=== PATIENT | female | born 2000 | race Caucasian/White ===

== ENCOUNTER 2023-05-26 09:08 | Emergency (ER) | payer OTHER, MEDICAID, SELFPAY ==
--- NOTE | ~2023-05-26 | XR_ITS ---
EXAMINATION: XR KNEE, RIGHT CLINICAL INFORMATION: Right knee pain COMPARISON: X-rays of the right knee April 2017 TECHNIQUE: Four views of the right knee. FINDINGS: No fracture or joint effusion. Alignment is anatomic. Joint spaces are maintained. No abnormal soft tissue calcification. XR/XR knee RT 4V IMPRESSION: Normal right knee.
[2023-05-26 09:38] VITALS: BP 131/85; PULSE 130; RESP 20; TEMP 36.3; O2SAT 97; BMI 23.0
--- NOTE | 2023-05-26 09:53 | ECG_ITS ---
Test Reason : tachy Blood Pressure : / mmHG Vent. Rate : 133 BPM Atrial Rate : 133 BPM P-R Int : 128 ms QRS Dur : 080 ms QT Int : 298 ms P-R-T Axes : 046 052 043 degrees QTc Int : 443 ms Sinus tachycardia Otherwise normal ECG No previous ECGs available Referred By: Generic ED Physician Electronically Signed By:Rasheed Vela
--- NOTE | 2023-05-26 12:24 | ED_ITS ---
<Statement entered by Juan Luis Buckner MD - 05/26/23 17:46> I saw this patient with the physician speech therapy assistant. Patient is here for evaluation of issues related to her right leg. The patient is a type 1 diabetic. She was hospitalized in [place] last month and was found to have collections, possibly abscesses in the right leg. It is an unusual case. She has a surgical scar with sutures intact in the lower thigh and also in the lower leg. Clinically the patient seems to have a very stiff-legged but I do not think she shows signs of an obvious acute septic process. I think the patient primarily needs follow- up. Apparently insurance issues have been very problematic as she has moved from [place] to [place]. 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 Reports she was suspposed to follow up with infectious disease and ortho but she had a change in her insurance and cant be seen in [place] anymore looking for a referal to ortho and guidance. Related Data Allergies Allergy/AdvReac Type Severity Reaction Status Date / Time amoxicillin [From Augmentin] Allergy Rash Verified 05/26/23 09:37 ceftriaxone [From Rocephin] Allergy Rash Verified 05/26/23 09:37 chamomile flower Allergy Hives Verified 05/26/23 09:37 clavulanic acid Allergy Rash Verified 05/26/23 09:37 [From Augmentin] pineapple Allergy Anaphylaxis Verified 05/26/23 09:37 Review of Systems 2 Review of Systems: Constitutional : No Weight loss, No Fever, No Chills, No Fatigue, No Malaise ENT/Mouth : No sore throat, No Rhinorrhea Eyes: No Eye Pain, No Swelling, No Redness Cardiovascular : No Chest Pain, No SOB, No Dyspnea on Exertion, No Orthopnea, No Edema, No Palpitations Respiratory : No Cough, No Sputum, No Wheezing Gastrointestinal : No Nausea, No Vomiting, No Diarrhea, No Constipation, No abdominal Pain, No Hematochezia, No Melena Genitourinary : No Dysuria, No Urinary Frequency, No Hematuria, Musculoskeletal : No joint pain, No Myalgias, No Joint Swelling Skin : No Skin Lesions, No rash Neuro : No Weakness, No Numbness, No Dizziness, No Headache Psych : No Anxiety/Panic, No Depression Heme/Lymph: No Bruising, No Bleeding,No Lymphadenopathy Endocrine : No Polyuria, No Polydipsia All other systems reviewed and are negative Yes all other systems are reviewed and are negative [facility] Past Medical History Attestation statement: The following information was validated with the patient. Source: old records reviewed and nursing notes reviewed Onset Date is defined in the Problem List Problems that require an onset date and time if occurred within 24 hrs of arrival to the ED Aortic Dissection and Rupture; Neurologic impairment; Cardiopulmonary Arrest; Endotracheal Intubation; Insertion or Replacement of Mechanical Circulatory Assist Device Social History Social History Smoked in Last 30 Days: No Use of substances other than those prescribed or required for medical reasons: No Advance Directives: No Advance Directives Information Provided: Yes Patient : No Physical Exam ED Vital Signs: Vital Signs - 24 hr 05/26/23 09:38 05/26/23 12:35 Temperature 97.4 F Pulse Rate 130 H 121 H Respiratory Rate 20 Blood Pressure 131/85 111/64 Pulse Oximetry 97 98 Oxygen Delivery Method Room Air Room Air BMI result Body Mass Index 23.0 vss Appearance: Alert.? Oriented X3.? No acute distress.? Head: Normocephalic, atraumatic, no step-offs or deformities Eyes: Pupils equal, round and reactive to light.? Neck: Normal inspection.? Neck supple.? CVS: Normal heart rate and rhythm.? Pulses normal.? Respiratory: No respiratory distress.? Breath sounds normal.? Abdomen: Soft and nontender.? Skin: Skin warm and dry.? Normal skin color.? Normal skin turgor.? Extremities: No lower extremity edema.? No calf ttp. 5/5 strength to bilateral upper and lower extremities 2+ DP,at,popliteal pulses equal and b/l. + R knee in a flexed position w/ difficulty extending R knee normal sensation distally, no foot drop. Ambulating w/ limp favoring L knee. Full rom rom to L knee. Two surgical incisions to RLE ( one behind r. knee w/ 7 sutures and one below the right knee anterior and medially w/ 7 sutures) - sutures removed after Neuro: Oriented X 3.? No motor deficit.? No sensory deficit. CN 2-12 intact Course Reevaluation(s) Reevaluation #1: CBC unremarkable. Chemistry unremarkable. Normal lactic acid. Normal glucose. Patient was seen by the orthopedic team this is likely knee in flexion due to healing, no acute findings, nothing to be done emergently about it. Patient to follow-up in the office. Patient does not have a PCP. Will give her list of PCPs in the area. Educated patient on diagnosis and treatment plan, answered all question, patient verbalizes understanding. At this time patient will be discharged home, advised to return with new or worsening symptoms. Educated on worrisome signs and symptoms and when to return. At this time I feel comfortable discharge home. Time: 14:56 Medical Decision Making Medical Decision Making [facility] Narrative: 23 yo presents requesting suture removal & w/ knee pain and swelling s/p I&D at [facility] [place] a few weeks ago No lower extremity edema.? No calf ttp. 5/5 strength to bilateral upper and lower extremities 2+ DP,at,popliteal pulses equal and b/l. + R knee in a flexed position w/ difficulty extending R knee normal sensation distally, no foot drop. Ambulating w/ limp favoring L knee. Full rom rom to L knee. This is likely poor ROM due to post op state. Unlikely DVT, arterial occlusion, NV compromise or threat to limb. No signs of abscess or infection. Plan- xray, labs Will reach out to orhto Differential Diagnosis Differential Diagnoses: The differential diagnosis associated with the presentation includes This is likely poor ROM due to post op state. Unlikely DVT, arterial occlusion, NV compromise or threat to limb. No signs of abscess or infection. Admission/Observation Consideration of admission/observation: Escalation of care including admission/observation considered Possible Consult Healthcare Provider Management of the patient was discussed with: Research Physicist (Ortho ) Lab Data [facility] Lab Attestation statement: I reviewed the patient's lab results. 05/26/23 13:11 05/26/23 13:11 Labs: Lab Results 01/02/24 01/02/24 01/02/24 Range/Units 12:46 13:11 14:29 WBC 7.2 (4.8-10.8) X10*3/uL RBC 4.80 (4.20-5.50) X10*6/uL Hgb 13.8 (12.0-16.0) g/dl Hct 40.6 (37.0-47.0) % MCV 84.6 (80.0-98.0) fL MCH 28.8 (27.0-33.0) pg MCHC 34.0 (31.0-35.0) g/dl RDW 13.0 (11.0-16.0) % Plt Count 388 (160-400) X10*3/uL MPV 9.6 (9.4-12.3) fL Immature Gran % (Auto) 0.1 (0.0-0.4) % Neut % (Auto) 33.9 L (45-73) % Lymph % (Auto) 57.9 H (20-40) % Alcorn % (Auto) 7.1 (2-11) % Eos % (Auto) 0.6 (0-4) % Baso % (Auto) 0.4 (0-2) % Lymph # (Auto) 4.2 (1.2-4.9) X10*3/uL Alcorn # (Auto) 0.5 (0.1-1.2) X10*3/uL Eos # (Auto) 0.0 (0.0-0.4) X10*3/uL Baso # (Auto) 0.0 (0.0-0.2) X10*3/uL Abs Immat Gran (auto) 0.01 (0.00-0.03) X10*3/uL Absolute Neuts (auto) 2.4 (2.0-8.3) x10*3/uL Absolute Nucleated RBC 0.000 (0.0-0.012) X10*3/uL Nucleated RBC % (auto) 0.0 (0.0-0.2) /100WBC Sodium 141 (135-145) mmol/L Potassium 3.8 (3.3-5.1) mmol/L Chloride 103 (96-108) mmol/L Carbon Dioxide 25 (22-29) mmol/L Anion Gap 17 (12-20) BUN 11 (9-16) mg/dL Creatinine 0.65 (0.5-1.4) mg/dL Estim Creat Clear Calc 138.0 Estimated GFR > 60 POC Glucose 91 (60-115) mg/dL Random Glucose 101 (60-115) mg/dL Lactic Acid 1.6 (0.5-2.0) mmol/L Calcium 9.8 (8.4-10.2) mg/dL Total Bilirubin 0.4 (0.0-1.0) mg/dL AST 12 (5-31) U/L ALT 18 (0-31) U/L Alkaline Phosphatase 69 (39-117) U/L Total Protein 7.9 (6.5-8.0) g/dL Albumin 4.3 (3.5-5.0) g/dL Independent Interpretation I performed an independent interpretation of an: Plain X-Ray Radiology Impression Discussion of test interpretation with radiology: I have reviewed the radiologist's reading. External Record Review External record reviewed: Outpatient record, Prior outpatient radiology and Outside ED record Chronic Conditions Patient?s care impacted by: Diabetes Critical Care Time Critical Care Time Critical Care Time: No Discharge Plan Discharge Clinical Impression: Knee pain, right Patient Disposition: Home, Self-Care Instructions: Knee Pain (ED) Additional Instructions: Take your medications as prescribed. If you were prescribed antibiotics today, it is important that you take your medication to their entirety, do not skip any doses, do not finish them early. Follow-up with your primary care provider this week. Return to the emergency department with new or worsening symptoms. Such as fevers, chills, chest pain, shortness of breath, nausea, vomiting, dizziness, headache, vision changes, lethargy In case of emergency call 911 Follow-up with the orthopedic team Return if any signs of infection such as redness, discharge from the site, inability to move knee. XR/XR knee RT 4V IMPRESSION: Normal right knee. Referrals: [facility] [place] [facility] [Provider Group] - 1 day [facility] [place] [facility] [Provider Group] - 1 day [facility] [place] [facility] [Provider Group] - 1 week Stand Alone Forms: Work/School Release
[2023-05-26 12:35] VITALS: BP 111/64; PULSE 121; O2SAT 98
--- NOTE | 2023-05-26 12:35 | PC.NURSE ---
pt speaking w/ orthopedic surgeons at this time.
[2023-05-26 13:07] LABS: Lactic Acid 1.6 mmol/L (0.5-2.0)
[2023-05-26 13:16] LABS: MANUAL DIFF FLAG NO
[2023-05-26 13:19] LABS: Basophils Percent Auto 0.4 % (0-2); Eosinophils Percent Auto 0.6 % (0-4); Hematocrit 40.6 % (37.0-47.0); Hemoglobin 13.8 g/dl (12.0-16.0); Imm Gran Abs Auto 0.01 X10*3/uL (0.00-0.03); Imm Gran Pct Auto 0.1 % (0.0-0.4); Lymphocytes Absolute Auto 4.2 X10*3/uL (1.2-4.9); Lymphocytes Percent Auto 57.9 % (20-40); Mean Corpuscular Hemoglobin 28.8 pg (27.0-33.0); Mean Corpuscular Volume 84.6 fL (80.0-98.0); Mean Platelet Volume 9.6 fL (9.4-12.3); Monocytes Absolute Auto 0.5 X10*3/uL (0.1-1.2); Monocytes Percent Auto 7.1 % (2-11); Neutrophils Absolute Auto 2.4 x10*3/uL (2.0-8.3); Neutrophils Percent Auto 33.9 % (45-73); Platelet Count 388 X10*3/uL (160-400); White Blood Count 7.2 X10*3/uL (4.8-10.8)
--- NOTE | 2023-05-26 14:18 | PC.NURSE ---
sutures being removed by ED providers at this time.
[2023-05-26 14:33] LABS: Glucose, Whole Blood 91 mg/dL (60-115)
[2023-05-26 14:39] LABS: Alanine Aminotransferase 18 U/L (0-31); Albumin Level 4.3 g/dL (3.5-5.0); Alkaline Phosphatase 69 U/L (39-117); Anion Gap 17 (12-20); Aspartate Amino Transferase 12 U/L (5-31); Bilirubin Total 0.4 mg/dL (0.0-1.0); Blood Urea Nitrogen 11 mg/dL (9-16); Calcium 9.8 mg/dL (8.4-10.2); Carbon Dioxide 25 mmol/L (22-29); Chloride 103 mmol/L (96-108); Estimated Glomerular Filt Rate > 60; Glucose Random 101 mg/dL (60-115); Potassium 3.8 mmol/L (3.3-5.1); Sodium 141 mmol/L (135-145); Total Protein 7.9 g/dL (6.5-8.0)
== END 2023-05-26 14:56 | disposition home or self-care (01) ==
PROVIDERS: Physician Assistant; Emergency Provider Emergency Medicine
DX: G89.18 Other acute postprocedural pain (principal); M25.561 Pain in right knee; Z48.02 Encounter for removal of sutures; E10.9 Type 1 diabetes mellitus without complications
CPT/HCPCS: 36415; 73564; 80053; 82947; 83605; 85025; 87040; 93005; 99283; 99284

== ENCOUNTER → 2023-05-26 09:53 | Outpatient (BNV) | payer OTHER, MEDICAID, SELFPAY | PROVIDERS: Emergency Provider Emergency Medicine; Visit Provider Internal Medicine Cardiovascular Disease | DX: R00.0 Tachycardia, unspecified (principal) | CPT/HCPCS: 93010 ==

== ENCOUNTER 2023-05-29 09:51 | Outpatient (AMB) | payer OTHER, MEDICAID, SELFPAY ==
[2023-05-29 09:54] VITALS: BMI 23.0
--- NOTE | 2023-05-29 09:54 | MHC.OFFVIS ---
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 Patient reports her knee feels a little bit better, however her incision site near her erickson. 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 The patient presented to the ED on 05/26/2023. 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 presenting w/ R knee pain swelling, inability to extend R knee and intermittent numbness, tingling and weird discoloration X a few days. Reports she was supposed to follow up with infectious disease and ortho but she had a change in her insurance and cant be [place] anymore looking for a referral to Orthopedics and guidance. The ED note states she was hospitalized in 04/2023 in [place] where it was found to have collections, possibly abscesses in the right leg. A surgical scar and sutures were noted on the left thigh and lower left leg. Review of Systems Const All systems reviewed & are unremarkable except as noted in HPI and below Physical Exam Vital Signs: BMI result Body Mass Index 23.0 Const General: cooperative and no acute distress Orientation/consciousness: patient oriented x3 Resp Effort & Inspection: normal respiratory effort and able to speak in complete sentences Cardio Peripheral pulses: Peripheral pulses 2+ throughout Skin General skin exam: no rashes or lesions noted Neuro General: patient oriented x3 Extrem Other: Right lower extremity distal incision site over the medial proximal tibia as well as the posterior lateral distal femur is c/d/i. No surrounding erythema, edema, or drainage. ROM is 45-90. NVI. Assessment & Plan Assessment & Plan (1) Stiffness of right knee: Code(s): M25.661 - Stiffness of right knee, not elsewhere classified (2) Abscess: Code(s): L02.91 - Cutaneous abscess, unspecified Plan Ms. Trejo is a 23-year-old female who presents in the office today, as a new patient, for an evaluation of right knee pain. The patient presented to the ED on 05/26/2023. 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 presenting w/ R knee pain swelling, inability to extend R knee and intermittent numbness, tingling and weird discoloration X a few days. Reports she was supposed to follow up with infectious disease and ortho but she had a change in her insurance and [place] be seen [place] anymore looking for a referral to Orthopedics and guidance. The ED note states she was hospitalized in 04/2023 in [place] where it was found to have collections, possibly abscesses in the right leg. A surgical scar and sutures were noted on the left thigh and lower left leg. The patient will be referred to physical therapy to work on ROM. Follow up will be in 6 weeks, or sooner if needed. X-rays of the right knee, obtained on 05/26/2023, revealed no evidence of acute fracture or dislocation. Orders: Orders PT Evaluation and Treatment Today M25.661 - Stiffness of right knee, not elsewhere classified Patient Instructions: Scribed for Rhonda Hurst PA-C by Kary Plascencia biomedical engineering aide, on 05/29/2023 at 10:02 am, EST. Coding Level of Care Code New Pt Level 4 (05456) Diagnoses Stiffness of right knee M25.661 Abscess L02.91
== END 2023-05-29 10:15 | disposition home or self-care (01) ==
PROVIDERS: Visit Provider Physician Assistant
DX: M25.661 Stiffness of right knee, not elsewhere classified (principal); L02.415 Cutaneous abscess of right lower limb
CPT/HCPCS: 99204

== ENCOUNTER → 2023-05-29 09:51 | Outpatient (BNVA) | payer OTHER, MEDICAID, SELFPAY | PROVIDERS: Visit Provider Physician Assistant | DX: M25.661 Stiffness of right knee, not elsewhere classified (principal); L02.91 Cutaneous abscess, unspecified | CPT/HCPCS: 99202 ==

== ENCOUNTER 2023-06-01 08:09 | Outpatient (RCR) | payer OTHER, MEDICAID, SELFPAY | END 2023-06-01 17:00 | disposition home or self-care (01) | LOC: HO.WCC 08:09 | PROVIDERS: Visit Provider Physician Assistant | DX: E10.628 Type 1 diabetes mellitus with other skin complications (principal); M65.061 Abscess of tendon sheath, right lower leg; E10.40 Type 1 diabetes mellitus with diabetic neuropathy, unspecified; M62.461 Contracture of muscle, right lower leg; Z79.4 Long term (current) use of insulin | CPT/HCPCS: 99213 ==